=== PATIENT | male | born 1985 | race African-American/Black ===

== ENCOUNTER 2024-10-08 13:48 | Emergency (ER) | payer OTHER ==
[~2024-10-08] VITALS: Ht 188 cm; Wt 125.9 kg
[2024-10-08] MEDS ORDERED: INSU100V SQ (13:56)
[2024-10-08] MEDS ORDERED: METF-1211 PO (13:56)
[2024-10-08] MEDS ORDERED: INSU100I75 SQ (13:56)
[2024-10-08] MEDS ORDERED: EMPA25TA3 PO (13:56)
[2024-10-08 13:59] VITALS: TEMP 98.4
[2024-10-08 14:11] LABS: GLUCOMETER DEV NAME(LOC) ER.7; GLUCOSE,POINT OF CARE 322 MG/DL (70-110)
[2024-10-08 14:40] LABS: BASOPHILS % (AUTO) 0.7 % (0.0-2.0); EOSINOPHILS % (AUTO) 3.2 % (1.0-6.0); HEMATOCRIT 47.3 % (41-53); HEMOGLOBIN 14.6 g/dL (13.5-17.5); LYMPHOCYTES # (AUTO) 2.6 K/uL (1.0-4.8); LYMPHOCYTES % (AUTO) 18.9 % (22.0-44.0); MEAN CORPUSCULAR HEMOGLOBIN 24.9 pg (26.0-34.0); MEAN CORPUSCULAR HGB CONC 30.9 G/dL (31.0-37.0); MEAN CORPUSCULAR VOLUME 81 fL (80-100); MONOCYTES # (AUTO) 0.7 K/uL (0.1-1.0); MONOCYTES % (AUTO) 4.9 % (2.0-9.0); NEUTROPHILS # (AUTO) 9.9 K/uL (1.8-7.7); NEUTROPHILS % (AUTO) 72.3 % (40.0-70.0); PLATELET COUNT (AUTO) 300 K/uL (150-450); RED BLOOD CELL COUNT(AUTO) 5.88 MIL/uL (4.50-5.90); RED CELL DISTRIBUTION WIDTH 12.6 % (11.5-14.5); WHITE BLOOD COUNT (AUTO) 13.7 K/uL (4.5-11.0)
[2024-10-08 14:49] LABS: ANION GAP 8 mmol/L (8-16); CALCIUM, TOTAL 9.1 mg/dL (8.8-10.5); CARBON DIOXIDE 29 mmol/L (22-29); CHLORIDE 96 mmol/L (98-107); CREATININE 1.25 mg/dL (0.60-1.30); GLOMERULAR FILTR. RATE CALC > 60 mL/min (>60); GLUCOSE,RANDOM 338 mg/dL (70-110); POTASSIUM 4.5 mmol/L (3.5-5.1); SODIUM SERUM 133 mmol/L (136-145); UREA NITROGEN, BLOOD 11 mg/dL (7-18)
[2024-10-08 14:50] LABS: LIPASE 26 U/L (16-77)
[2024-10-08] MEDS: SODIUM CHLORIDE 0.9% 1,000 ML IV ONE (15:11)
[2024-10-08] MEDS: INSULIN LISPRO 100 UNITS/ML SQ ONE (15:11)
[2024-10-08 15:52] LABS: BASE EXCESS,VENOUS BLOOD GAS -0.3 (-2.0-3.0); HCO3,VENOUS BLOOD GAS 22.2 (22.0-29.0); PCO2,VENOUS BLOOD GAS 48 (38-54); PH,VENOUS BLOOD GAS 7.343 (7.320-7.430); SOURCE, BLOOD GAS VENOUS; TEMPERATURE, FAHRENHEIT, BG 98.4 FAHREN (96.0-98.6)
[2024-10-08 15:53] LABS: ALLEN TEST, BLOOD GAS POS; SITE, BLOOD GAS LAC
[2024-10-08 16:00] VITALS: BP 127/80; PULSE 97; RESP 20; O2SAT 99
[2024-10-08 16:20] LABS: COVID AG,FIA SOURCE NASAL SWAB
[2024-10-08 16:29] LABS: APPEARANCE,URINE CLEAR (CLEAR); BILIRUBIN,URINE NEGATIVE (NEGATIVE); COLOR,URINE COLORLESS (YELLOW); GLUCOSE, URINE (UA) >=1000 mg/dL (NEGATIVE); KETONES,URINE NEGATIVE (NEGATIVE); LEUKOCYTE ESTERASE ,URINE NEGATIVE (NEGATIVE); NITRATE,URINE NEGATIVE (NEGATIVE); OCCULT BLOOD,URINE NEGATIVE (NEGATIVE); PH,URINE 6.5 (5.0-8.0); PROTEIN,URINE NEGATIVE (NEGATIVE); SPECIFIC GRAVITIY, URINE 1.038 (1.003-1.030); UROBILINOGEN,URINE <=1.0 mg/dL (<=1.0)
[2024-10-08 16:57] LABS: BACTERIA,URINE None Seen /HPF (None Seen); RBC,URINE 0-2 /HPF (0-2); SQUAMOUS EPITHELIAL CELL,UR Rare /LPF (None Seen); WBC,URINE 0-2 /HPF (0-5)
[2024-10-08 17:04] LABS: SARS-COV2 (COVID) ANTIGEN,FIA Negative (Negative)
[2024-10-08 17:05] LABS: INFLUENZA TYPE A NEGATIVE FOR TYPE A (NEGATIVE); INFLUENZA TYPE B NEGATIVE FOR TYPE B (NEGATIVE)
[2024-10-08] MEDS ORDERED: INSU100I26 SQ ×2 (17:29→17:32)
[2024-10-08] MEDS ORDERED: INSU100V3 SQ ×2 (17:29→17:32)
== END 2024-10-08 17:45 | disposition home or self-care (01) ==
LOC: EMS 13:48
DX: E11.65 Type 2 diabetes mellitus with hyperglycemia (principal); D72.829 Elevated white blood cell count, unspecified; Z88.0 Allergy status to penicillin; Z79.4 Long term (current) use of insulin; Z20.822 Contact with and (suspected) exposure to COVID-19
CPT/HCPCS: 99284; 96360; 71045; 87426; 80048; 81001; 82962 ×2; 83690; 85025; 87804; 36415; 82805; 96372; J7030; J1815

== ENCOUNTER 2025-07-19 12:35 | Inpatient (IN) | payer OTHER ==
[~2025-07-19] VITALS: Ht 188 cm; Wt 104.5 kg
[~2025-07-19 12:35] MED LIST: CEPH-558 PO; EMPA25TA3 PO; GABA-1181 PO; INSU100I26 SQ; INSU100I75 SQ; INSU100V SQ; INSU100V3 SQ; METF-1211 PO; OSEL75CA17 PO
[2025-07-19 13:05] LABS: GLUCOMETER DEV NAME(LOC) ERT.7; GLUCOSE,POINT OF CARE > 600 MG/DL (70-110)
[2025-07-19] MEDS: SODIUM CHLORIDE 0.9% 1,000 ML IV ONE ×2 (13:33→14:56)
[2025-07-19 13:38] LABS: PLATELET COUNT (AUTO) 263 K/uL (150-450); RED BLOOD CELL COUNT(AUTO) 4.89 MIL/uL (4.50-5.90); RED CELL DISTRIBUTION WIDTH 13.7 % (11.5-14.5); WHITE BLOOD COUNT (AUTO) 7.3 K/uL (4.5-11.0)
[2025-07-19] MEDS ORDERED: ONDANSETRON HCL 4 MG/2 ML VIAL IVP PRN (13:45)
[2025-07-19] MEDS ORDERED: ACETAMINOPHEN 325 MG TABLET PO PRN (13:45)
[2025-07-19] MEDS ORDERED: ZOLPIDEM TARTRATE 5 MG TABLET PO PRN (13:45)
[2025-07-19 13:52] LABS: CALCIUM, TOTAL 8.1 mg/dL (8.8-10.5); CREATININE 1.09 mg/dL (0.60-1.30); GLOMERULAR FILTR. RATE CALC > 60 mL/min (>60); UREA NITROGEN, BLOOD 7 mg/dL (7-18)
[2025-07-19 13:53] LABS: SODIUM SERUM 123 mmol/L (136-145)
[2025-07-19 13:54] LABS: ASPARTATE AMINOTRANSFERASE 18 U/L (15-37); TOTAL PROTEIN, SERUM 6.6 g/dL (6.4-8.2)
[2025-07-19] MEDS ORDERED: DEXTROSE 50%-WATER 25 GM/50 ML SYRINGE IVP PRN (14:00)
[2025-07-19 14:04] LABS: GLUCOSE,RANDOM 819 mg/dL (70-110)
[2025-07-19 14:17] LABS: ABG BASE EXCESS 3.2 mmol/L (-2.0-3.0); ABG CARBOXYHEMOGLOBIN 1.5 % (0.5-1.5); ABG HCO3 26.9 mmol/L (21.0-28.0); ABG METHEMOGLOBIN 0.7 % (0.0-1.5); ABG OXYGEN CONTENT 18.7 mL/dL (15.0-23.0); ABG OXYGEN SATURATION 97.3 % (94.0-98.0); ABG OXYHEMOGLOBIN 95.2 % (94.0-98.0); ABG PCO2 43 mmHg (32.0-48.0); ABG PH 7.423 (7.350-7.450); ABG TOTAL HEMOGLOBIN 13.9 G/dL (13.5-17.5); ALLEN TEST, BLOOD GAS Positive; FRACTIONATED INSPIRED OXYGEN 21.0 % (21-100.0); O2 DEVICE,BLOOD GAS ROOM AIR (ROOM AIR); PO2, ARTERIAL BG 87.1 mmHg (83.0-108.0); SITE, BLOOD GAS RT RADIAL; SOURCE, BLOOD GAS ARTERIAL; TEMPERATURE, FAHRENHEIT, BG 98.4 FAHREN (96.0-98.6)
[2025-07-19 14:18] LABS: TROPONIN I-HIGH SENSITIVITY 7 ng/L (<76)
[2025-07-19 14:23] LABS: ACETONE,BLOOD TRACE (NEGATIVE)
[2025-07-19 14:42] LABS: APPEARANCE,URINE CLEAR (CLEAR); GLUCOSE, URINE (UA) >=1000 mg/dL (NEGATIVE); LEUKOCYTE ESTERASE ,URINE NEGATIVE (NEGATIVE); NITRATE,URINE NEGATIVE (NEGATIVE); OCCULT BLOOD,URINE NEGATIVE (NEGATIVE); SPECIFIC GRAVITIY, URINE 1.030 (1.003-1.030)
[2025-07-19] MEDS: OxyCODONE HCL/ACETAMINOPHEN 5-325 MG TABLET PO PRN (14:55)
[2025-07-19] MEDS: INSULIN REGULAR, HUMAN 100 UNITS/ML IVP ONE (14:56)
[2025-07-19 15:16] LABS: GLUCOMETER DEV NAME(LOC) ER.7; GLUCOSE,POINT OF CARE 597 MG/DL (70-110)
[2025-07-19] MEDS: DOCUSATE SODIUM 100 MG CAPSULE PO SCH (20:15)
[2025-07-19] MEDS: INSULIN GLARGINE,HUM.REC.ANLOG 100 UNITS/ML SQ SCH (20:15)
[2025-07-19 21:27] VITALS: BP 150/99; PULSE 85; RESP 17; TEMP 98.1; O2SAT 99
[2025-07-19] MEDS: INSULIN LISPRO 100 UNITS/ML SQ PRN (21:33)
[2025-07-20 01:01] LABS: GLUCOMETER DEV NAME(LOC) 4E.2; GLUCOSE,POINT OF CARE 360 MG/DL (70-110)
[2025-07-20 04:00] VITALS: BP 144/87; PULSE 82; RESP 18; TEMP 97.7; O2SAT 97
[2025-07-20 07:54] VITALS: BP 134/94; PULSE 95; RESP 18; TEMP 97.7; O2SAT 98
[2025-07-20] MEDS: FAMOTIDINE 20 MG TABLET PO SCH (08:17)
[2025-07-20 10:06] LABS: GLUCOMETER DEV NAME(LOC) 4E.2; GLUCOSE,POINT OF CARE 255 MG/DL (70-110)
[2025-07-20 16:28] VITALS: BP 131/92; PULSE 82; RESP 18; TEMP 97.5; O2SAT 98
[2025-07-20 17:45] LABS: GLUCOMETER DEV NAME(LOC) 4E.2; GLUCOSE,POINT OF CARE 273 MG/DL (70-110)
[2025-07-20 17:50] LABS: GLUCOMETER DEV NAME(LOC) 6S.2; GLUCOSE,POINT OF CARE 228 MG/DL (70-110)
[2025-07-20 19:42] VITALS: BP 153/91; PULSE 90; RESP 18; TEMP 97.7; O2SAT 96
[2025-07-20 22:26] LABS: PLATELET COUNT (AUTO) 246 K/uL (150-450); RED BLOOD CELL COUNT(AUTO) 4.88 MIL/uL (4.50-5.90); RED CELL DISTRIBUTION WIDTH 13.7 % (11.5-14.5); WHITE BLOOD COUNT (AUTO) 7.6 K/uL (4.5-11.0)
[2025-07-20 22:36] LABS: CALCIUM, TOTAL 8.4 mg/dL (8.8-10.5); CREATININE 0.93 mg/dL (0.60-1.30); GLOMERULAR FILTR. RATE CALC > 60 mL/min (>60); GLUCOSE,RANDOM 264 mg/dL (70-110); SODIUM SERUM 135 mmol/L (136-145); UREA NITROGEN, BLOOD 5 mg/dL (7-18)
[2025-07-20 22:41] LABS: ASPARTATE AMINOTRANSFERASE 12 U/L (15-37); TOTAL PROTEIN, SERUM 6.1 g/dL (6.4-8.2)
[2025-07-20 23:26] VITALS: BP 140/84; PULSE 82; RESP 19; O2SAT 100
[2025-07-21 02:41] LABS: GLUCOMETER DEV NAME(LOC) 4E.2; GLUCOSE,POINT OF CARE 483 MG/DL (70-110)
[2025-07-21 05:51] VITALS: BP 135/100; PULSE 79; RESP 19; TEMP 97.7; O2SAT 100
[2025-07-21 06:15] LABS: PLATELET COUNT (AUTO) 233 K/uL (150-450); RED BLOOD CELL COUNT(AUTO) 4.76 MIL/uL (4.50-5.90); RED CELL DISTRIBUTION WIDTH 13.6 % (11.5-14.5); WHITE BLOOD COUNT (AUTO) 6.0 K/uL (4.5-11.0)
[2025-07-21 06:34] LABS: ASPARTATE AMINOTRANSFERASE 14 U/L (15-37); CALCIUM, TOTAL 8.2 mg/dL (8.8-10.5); CREATININE 0.53 mg/dL (0.60-1.30); GLOMERULAR FILTR. RATE CALC > 60 mL/min (>60); GLUCOSE,RANDOM 283 mg/dL (70-110); SODIUM SERUM 136 mmol/L (136-145); TOTAL PROTEIN, SERUM 5.9 g/dL (6.4-8.2); UREA NITROGEN, BLOOD 6 mg/dL (7-18)
[2025-07-21 08:00] VITALS: BP 126/88; PULSE 84; RESP 19; TEMP 97.7; O2SAT 98
[2025-07-21] MEDS ORDERED: PERCT PO (11:58)
[2025-07-21 12:06] LABS: GLUCOMETER DEV NAME(LOC) 4E.2; GLUCOSE,POINT OF CARE 274 MG/DL (70-110)
[2025-07-21 12:06] LABS: GLUCOMETER DEV NAME(LOC) 4E.2; GLUCOSE,POINT OF CARE 300 MG/DL (70-110)
[2025-07-21 12:06] LABS: GLUCOMETER DEV NAME(LOC) 4E.2; GLUCOSE,POINT OF CARE 215 MG/DL (70-110)
[2025-07-21] MEDS: EMPAGLIFLOZIN 25 MG TABLET PO ONE (13:17)
[2025-07-21] MEDS ORDERED: GABAPENTIN 300 MG CAPSULE PO SCH (16:00)
[2025-07-21] MEDS ORDERED: INSULIN REGULAR, HUMAN 100 UNITS/ML SQ SCH (17:30)
[2025-07-21] MEDS ORDERED: INSULIN GLARGINE,HUM.REC.ANLOG 100 UNITS/ML SQ SCH (21:00)
[2025-07-22] MEDS ORDERED: EMPAGLIFLOZIN 25 MG TABLET PO SCH (09:00)
== END 2025-07-21 13:22 | disposition home or self-care (01) | DRG 638 ==
LOC: EMS 12:42 → EDH 13:41 → 6S 21:21
PROVIDERS: ADMIT Internal Medicine; ATTEND Internal Medicine
DX: E11.65 Type 2 diabetes mellitus with hyperglycemia (principal); E87.1 Hypo-osmolality and hyponatremia; M24.412 Recurrent dislocation, left shoulder; Z91.148 Patient's other noncompliance with medication regimen for other reason; Z79.4 Long term (current) use of insulin; Z83.3 Family history of diabetes mellitus; Z88.0 Allergy status to penicillin; Z79.899 Other long term (current) drug therapy
CPT/HCPCS: 73221; 80053; 81001; 82009; 82805; 82948; 82962; 84484; 85025; 93005; 97116; 97162; 99291; J1815; J7030